=== PATIENT | female | born 1950 | race Caucasian/White ===

== ENCOUNTER → 2017-01-22 | Outpatient (CLI) | payer MEDICARE ==
[2017-01-22 10:56] LABS: PROTHROMBIN TIME 26.9 SEC (11.4-15.4)
== END ==
LOC: OD 09:15
PROVIDERS: ATTEND Family Medicine
DX: I26.99 Other pulmonary embolism without acute cor pulmonale (principal)
CPT/HCPCS: 36415; 85610

== ENCOUNTER → 2017-01-29 | Outpatient (CLI) | payer MEDICARE | LOC: OD 08:00 | PROVIDERS: ATTEND Family Medicine | DX: I26.99 Other pulmonary embolism without acute cor pulmonale (principal) | CPT/HCPCS: 36415; 85610 ==

== ENCOUNTER → 2017-11-11 | Outpatient (CLI) | payer MEDICARE ==
[2017-11-11 11:26] LABS: PROTHROMBIN TIME 23.7 SEC (11.4-15.4)
== END ==
LOC: OD 09:47
PROVIDERS: ATTEND Internal Medicine
DX: F41.9 Anxiety disorder, unspecified (principal); I26.99 Other pulmonary embolism without acute cor pulmonale
CPT/HCPCS: 36415; 85610

== ENCOUNTER → 2018-03-11 | Outpatient (CLI) | payer MEDICARE ==
[2018-03-11 14:25] LABS: INTERNATIONAL RATION (INR) 1.55; PROTHROMBIN TIME 19.3 SEC (11.4-15.4)
== END ==
LOC: OD 13:45
PROVIDERS: ATTEND Internal Medicine
DX: R94.5 Abnormal results of liver function studies (principal)
CPT/HCPCS: 36415; 85610

== ENCOUNTER → 2018-03-19 | Outpatient (CLI) | payer MEDICARE ==
[2018-03-19 13:10] LABS: INTERNATIONAL RATION (INR) 1.69; PROTHROMBIN TIME 20.7 SEC (11.4-15.4)
== END ==
LOC: OD 12:01
PROVIDERS: ATTEND Internal Medicine
DX: I48.91 Unspecified atrial fibrillation (principal)
CPT/HCPCS: 36415; 85610

== ENCOUNTER 2018-10-25 10:34 | Emergency (ER) | payer MEDICARE ==
[2018-10-25] MEDS ORDERED: DILTIAZEM HCL INJ 25 MG/5 ML VIAL IV ONE ×2 (11:28→12:59)
[2018-10-25] MEDS ORDERED: DILTIAZEM HCL/D5W 125 MG/125 ML RTUINJ IV PRN (11:28)
--- NOTE | 2018-10-25 11:33 | ER Document Report ---
ED Cardiac - General Chief Complaint: Palpitations Stated Complaint: PALPITATIONS Time Seen by Provider: 10/25/18 11:11 Primary Care Provider: KETTY GOYAL MD [NO LOCAL MD] - Follow up as needed Notes: Patient has a history of atrial fibrillation for about 20 years for which she is on metoprolol 12.5 mg at bedtime and flecainide 50 mg twice a day. She has an episode of atrial fibrillation about every year or 2, her most recent was about a year ago. About 6:30 AM, she felt as if her heart was "running, skipping, and jumping". She took her flecainide at 6:30 AM instead of the usual 10:30 AM today. She says that she usually gets treated in the ER when this happens and is usually able to go home. Patient and her were just planning on leaving [place] this morning to drive back to [facility], (12 hours). Patient is on Coumadin for previous pulmonary emboli. She is on thyroid for a suppressed thyroid condition. TRAVEL OUTSIDE OF THE [place] IN LAST 30 DAYS: No - Related Data Allergies/Adverse Reactions: Penicillins Allergy (Mild, Verified 10/25/18 11:56) Hives Sulfa (Sulfonamide Antibiotics) Allergy (Mild, Verified 10/25/18 11:56) Edema Past Medical History - Social History Smoking Status: Unknown if Ever Smoked Family History: Reviewed & Not Pertinent - Past Medical History Cardiac Medical History: Reports: Hx Atrial Fibrillation, Hx Pulmonary Embolism Endocrine Medical History: Reports: Hx Hypothyroidism GI Medical History: Reports: Other - History of elevated LFTs of questionable significance. Review of Systems - Review of Systems Notes: REVIEW OF SYSTEMS: CONSTITUTIONAL : Denies fever. EENT: Denies eye, ear, nose or mouth or throat pain or other symptoms. CARDIOVASCULAR: Denies chest pain. See HPI. RESPIRATORY: Denies cough, chest congestion, or shortness of breath. GASTROINTESTINAL: Denies abdominal pain or nausea, vomiting, or diarrhea. GENITOURINARY: Denies difficulty or painful urinating, urinary frequency, blood in urine. MUSCULOSKELETAL: Denies back or neck pain. Denies joint pain or swelling. SKIN: Denies rash or skin lesions. NEUROLOGICAL: Denies LOC or altered mental status. Denies headache. Denies sensory loss or motor deficits. ALL OTHER SYSTEMS REVIEWED AND NEGATIVE. Physical Exam - Vital signs Vitals: Temp Pulse Resp BP Pulse Ox 97.5 F 116 H 16 149/96 H 98 10/25/18 10:56 10/25/18 10:56 10/25/18 10:56 10/25/18 10:56 10/25/18 10:56 Interpretation: Tachycardic - Irregular and skipping Notes: PHYSICAL EXAMINATION: GENERAL: Well-appearing, in no acute distress. Anxious. HEAD: Atraumatic, normocephalic. EYES: Pupils equal round and reactive to light, extraocular movements intact. ENT: oropharynx clear without exudates. Moist mucous membranes. NECK: Normal range of motion, supple. LUNGS: Breath sounds clear and equal bilaterally. HEART: Irregularly irregular rate and rhythm without murmurs. Irregularly irregular heart rate at about 120/min. ABDOMEN: Soft, nontender. No guarding or rebound. No masses. BACK: No tenderness throughout entire back. EXTREMITIES: Normal range of motion without pain. Negative Homans bilaterally. NEUROLOGICAL: Normal speech, normal gait. Normal sensory, motor, and reflex exams. Awake, alert, and oriented x3. Cranial nerves normal. PSYCH: Normal mood, normal affect. Anxious. SKIN: Warm, dry, no rashes. Course - Re-evaluation Re-evalutation: 10/25/18 16:[address] Doherty a couple of hours ago, he recommended giving the patient 5 mg of Lopressor IV and also giving her Lovenox single dose subcutaneous because she is insufficiently anticoagulated on her warfarin. Patient just recently showed her heart rate dropped from about 115-116 down to its current in the 70s. I cannot tell if its interference or continuing A. fib, however. - Vital Signs Vital signs: Temp Pulse Resp BP Pulse Ox 97.5 F 116 H 17 128/74 H 97 10/25/18 10:56 10/25/18 10:56 10/25/18 16:01 10/25/18 16:01 10/25/18 16:01 - Laboratory Result Diagrams: 10/25/18 11:47 10/25/18 12:37 Laboratory results interpreted by me: 10/25/18 10/25/18 11:47 12:37 PT 20.6 H Glucose 123 H AST 57 H ALT 59 H Alkaline Phosphatase 142 H - EKG Interpretation by Or EKG shows normal: Sinus rhythm Rate: Normal Rhythm: NSR Additional EKG results interpreted by me: 10/25/18 16:33 EKG #1 shows an atrial paced rhythm, perhaps atrial flutter. LVH and ST changes. After patient was noted on the monitor you to have converted to what likely appears to be a sinus rhythm, we did another 12-lead which shows the patient to be in a normal sinus rhythm with no acute changes. Discharge - Discharge Clinical Impression: Atrial ectopic tachycardia, Inadequate anticoagulation Condition: Stable Disposition: HOME, SELF-CARE Additional Instructions: Atrial Fibrillation Atrial fibrillation is an abnormal heart rhythm, caused by irregular electrical circuits in the upper heart chamber. It can be caused by heart valve disease, hardening of the arteries, or metabolic problems such as thyroid disease, or may occur without a clear cause. Atrial fibrillation may occur only occasionally, or may be chronic. Atrial fibrillation often results in a very fast heart rate, with palpitations, lightheadedness, and shortness of breath. Treatment is to slow the abnormally fast rate, and to convert the rhythm back to normal, if possible. Many patients stay in atrial fibrillation for years without symptoms or complications. Your doctor will decide whether you can be converted back to a normal heart rhythm. Contact the doctor or emergency medical system at once if you develop chest pain, shortness of breath, or severe lightheadedness, or if you develop any disturbance of consciousness, problems with speech, or localized weakness. You were given beta Blockers (Lopressor) You have been given a prescription for a beta-teressa medication. This class of drugs is used for many purposes, including angina, high blood pressure, heart rhythm disturbances, tremors, and migraines. The medication works by interfering with the effects of the sympathetic nervous system (the sympathetic system has adrenaline-like effects of constricting blood vessels, increasing heart rate, and increasing blood pressure). This medication is usually well-tolerated. However, some patients have side effects such as fatigue, depression, or dizziness. Persons with asthma may develop wheezing from this medicine. Contact your doctor if you are bothered by any side effects. Do not take any cold or allergy medication without first consulting your doctor. Do not stop the medicine without consulting your doctor, as a "rebound" worsening of your condition can result. And you are also given Calcium Channel Blockers (Cardizem) A medication of the calcium channel teressa type has been prescribed for yo u. Examples of this type of medicine are Calan, Isoptin, Procardia, and Cardizem. These medicines have a variety of uses, including prevention of angina attacks, treatment of blood pressure, regulation of certain heart rhythm problems, and prevention of migraine headaches. Calcium channel blockers work by interfering with the flow of calcium in cell membranes. This results in dilation of blood vessels, and slowing of electrical conduction in the heart. A slight dizziness (due to a fall in blood pressure) may occur with the first dose, and sometimes even with later doses. This may make you prone to dizziness if you stand up suddenly. Call the doctor if lightheadedness is severe, or if you develop palpitations, shortness of breath, or any other new or alarming symptoms. Follow-up with your detective sergeant when you return to [place]. Your warfarin INR level is too low and needs to be adjusted to increase your INR. You have been provided with copies of all of your lab results and EKGs. Discussed these findings with your primary care when you get back to [place]. FOLLOW-UP CARE: If you have been referred to a physician for follow-up care, call the physicians office for an appointment as you were instructed or within the next two days. If you experience worsening or a significant change in your symptoms, notify the physician immediately or return to the Emergency Department at any time for re-evaluation. Referrals: KETTY GOYAL MD [NO LOCAL MD] - Follow up as needed
[2018-10-25 12:08] LABS: ABSOLUTE LYMPHOCYTES (AUTO) 1.3 10^3/uL (0.5-4.7); ABSOLUTE MONOCYTES (AUTO) 0.4 10^3/uL (0.1-1.4); ABSOLUTE NEUT (AUTO) 4.2 10^3/uL (1.7-8.2); BASOPHILS % (AUTO) 0.6 % (0-2); EOSINOPHILS % (AUTO) 0.5 % (0-6); HEMATOCRIT 40.9 % (36.0-47.0); LYMPHOCYTES % (AUTO) 21.2 % (13-45); MEAN CORPUSCULAR HGB CONC 34.3 g/dL (32.0-36.0); MEAN CORPUSCULAR VOLUME 90 fl (80-97); MONOCYTES % (AUTO) 7.2 % (3-13); PLATELET COUNT 213 10^3/uL (150-450); RED BLOOD COUNT 4.53 10^6/uL (3.72-5.28); RED CELL DISTRIBUTION WIDTH 12.8 % (11.5-14.0); SEGMENTED NEUTROPHILS % (AUTO) 70.5 % (42-78); TOTAL CELLS COUNTED % (AUTO) 100 %
[2018-10-25 12:13] LABS: INTERNATIONAL RATION (INR) 1.68; PROTHROMBIN TIME 20.6 SEC (11.4-15.4)
[2018-10-25 12:34] LABS: CREATINE KINASE MB 1.54 ng/mL (<4.55)
[2018-10-25 12:35] LABS: TROPONIN I < 0.012 ng/mL
[2018-10-25] MEDS ORDERED: DIGOXIN INJ 0.5 MG/2 ML AMPULE IV ONE (12:56)
--- NOTE | 2018-10-25 13:01 | EKG REPORT ---
SEVERITY:- ABNORMAL ECG - ATRIAL FLUTTER LVH WITH SECONDARY REPOLARIZATION ABNORMALITY ST DEPRESSION, FACTITIOUS, DUE TO FLUTTER WAVES. : Confirmed by: Willian Means MD 25-Oct-2018 13:01:25
[2018-10-25 13:12] LABS: ALANINE AMINOTRANSFERASE 59 U/L (9-52); ALBUMIN 4.3 g/dL (3.5-5.0); ALKALINE PHOSPHATASE 142 U/L (38-126); ANION GAP 8 (5-19); ASPARTATE AMINO TRANSFERASE 57 U/L (14-36); BILIRUBIN,DIRECT 0.2 mg/dL (0.0-0.4); BILIRUBIN,TOTAL 0.5 mg/dL (0.2-1.3); BLOOD UREA NITROGEN 18 mg/dL (7-20); CALCIUM 9.9 mg/dL (8.4-10.2); CARBON DIOXIDE 28 mmol/L (22-30); CHLORIDE 106 mmol/L (98-107); CREATINE KINASE 127 U/L (30-135); GLUCOSE 123 mg/dL (75-110); POTASSIUM 3.9 mmol/L (3.6-5.0); SODIUM 141.7 mmol/L (137-145); TOTAL PROTEIN 7.7 g/dL (6.3-8.2)
[2018-10-25 13:28] LABS: FREE T4 (FREE THYROXINE) 1.34 ng/dL (0.78-2.19)
[2018-10-25 13:42] LABS: THYROID STIMULATING HORMONE 3.09 uIU/mL (0.47-4.68)
[2018-10-25] MEDS ORDERED: METOPROLOL TARTRATE PF/INJ 5 MG/5 ML SDV IV ONE (14:31)
[2018-10-25] MEDS ORDERED: ENOXAPARIN SODIUM INJ 100 MG/1 ML DISP.SYRIN SUBCUT ONE (14:35)
[2018-10-25 16:19] VITALS: BP 128/74
--- NOTE | 2018-10-25 19:38 | EKG REPORT ---
SEVERITY:- ABNORMAL ECG - SINUS RHYTHM PROBABLE LVH WITH SECONDARY REPOL ABNRM : Confirmed by: Willian Means MD 25-Oct-2018 19:37:48
== END 2018-10-25 17:04 | disposition home or self-care (01) ==
LOC: ER 10:34
DX: I47.1 Supraventricular tachycardia (principal); R79.1 Abnormal coagulation profile; I48.91 Unspecified atrial fibrillation; E03.9 Hypothyroidism, unspecified; Z88.0 Allergy status to penicillin; Z88.2 Allergy status to sulfonamides; Z86.711 Personal history of pulmonary embolism
CPT/HCPCS: 93005; 99285; 96372; 96375; 96365; 96366; 36415; 84439; 82553; 82550; 84443; 85025; 85610; 80053; 84484; 93010; J1160; J3490 ×3; J1650

== ENCOUNTER → 2019-06-02 | Outpatient (CLI) | payer MEDICARE ==
[2019-06-02 11:15] LABS: INTERNATIONAL RATION (INR) 2.09; PROTHROMBIN TIME 23.8 SEC (11.4-15.4)
== END ==
LOC: OD 10:07
PROVIDERS: ATTEND Internal Medicine
DX: I48.91 Unspecified atrial fibrillation (principal)
CPT/HCPCS: 36415; 85610